=== PATIENT | male | born 1990 | race Caucasian/White ===

== ENCOUNTER 2024-03-15 10:55 | Emergency (ER) | payer OTHER, SELFPAY ==
[2024-03-15 10:58] VITALS: BP 181/110; PULSE 114; RESP 24; TEMP 36.8; O2SAT 97; BMI 36.8
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
[2024-03-15 11:56] VITALS: PULSE 117; RESP 25; O2SAT 100
[2024-03-15 12:00] VITALS: PULSE 121; RESP 21
--- NOTE | 2024-03-15 12:03 | ED.RN ---
pt. spoke with Roverto Peter, neurology manager at [employer] who stated he needed to take a drug and alcohol screening for a workman's comp.
--- NOTE | 2024-03-15 12:05 | ED.RN ---
pt. wants to file workmans comp
[2024-03-15 13:03] VITALS: BP 166/118; PULSE 111; RESP 24; O2SAT 99
[2024-03-15 13:27] VITALS: BP 146/85; PULSE 110; RESP 15; TEMP 36.8; O2SAT 98
== END 2024-03-15 13:47 | disposition home or self-care (01) ==
PROVIDERS: Emergency Provider Emergency Medicine; PCP Nurse Practitioner; Visit Provider Emergency Medicine
DX: S92.531A Displaced fracture of distal phalanx of right lesser toe(s), initial encounter for closed fracture (principal); S20.20XA Contusion of thorax, unspecified, initial encounter; S09.90XA Unspecified injury of head, initial encounter; I10 Essential (primary) hypertension; Z79.899 Other long term (current) drug therapy; V49.40XA Driver injured in collision with unspecified motor vehicles in traffic accident, initial encounter
CPT/HCPCS: 70450; 71046; 73630; 99284